=== PATIENT | female | born 1945 | race African-American/Black ===

== ENCOUNTER 2019-05-17 11:05 | Outpatient (CLI) | payer MEDICARE ==
--- NOTE | 2019-05-18 12:55 | Mammography Report ---
DIGITAL SCREENING MAMMOGRAM WITH CAD, 05/17/2019 INDICATION: Routine screening mammography. Breast cancer survivor status post left mastectomy. TECHNIQUE: Digital bilateral 2D mammography was obtained in the craniocaudal and mediolateral obliq ue projections. Left chest wall was imaged since there is redundant soft tissue. This examination was interpreted with the benefit of Computer-Aided Detection analysis. COMPARISON: 03/05/2016 FINDINGS: Breast Density: The breasts are almost entirely fatty. There is no evidence of dominant mass, suspicious calcifications or architectural distortion in the r ight breast or the left chest wall. IMPRESSION: No mammographic evidence of malignancy. Follow up recommendation: Routine yearly BI-RADS Category 2: Benign. A "normal" or negative report should not discourage follow up or biopsy of a clinically significant f inding. A written summary of these findings will be mailed to the patient. The patient will be entered into a mammography reporting system which will generate a reminder letter for the patient's next appointmen t at the appropriate interval. The [employer] recommends yearly mammograms starting at age 40 and continuing as l joey as a woman is in good health. Breast MRI is recommended for women with an approximate 20-25% or greater lifetime risk of breast cancer, including women with a strong family history of breast or ova randi cancer or who have been treated for Hodgkin's disease. Signer Name: Ricky Zheng MD Signed: 05/18/2019 12:51 PM Workstation Name: [id number]
== END 2019-05-17 11:06 | disposition home or self-care (01) ==
LOC: SPVWC 11:05
PROVIDERS: ATTEND Internal Medicine Hematology & Oncology
DX: Z12.31 Encounter for screening mammogram for malignant neoplasm of breast (principal); D05.12 Intraductal carcinoma in situ of left breast; R07.9 Chest pain, unspecified
CPT/HCPCS: 77067